=== PATIENT | female | born 1955 | race Caucasian/White ===

== ENCOUNTER → 2016-05-15 | Outpatient (CLI) | payer OTHER ==
[~2016-05-15] VITALS: Ht 167.6 cm; Wt 59.4 kg
[~2016-05-15] MED LIST: ACETAMINOPHEN-1 EAC1 PO; AMBIEN 5 MG TABL5 M1 PO; DICLOFENAC SOD50 M1 PO; HYDROCODONE-AP1 EAC6 PO; LOPRESSOR50 PO; NORTRIPTYLINE H50 MG PO; ZOCOR40 MG PO
--- NOTE | ~2016-05-15 | HPC ---
[facility] [place] [address] PAIN MANAGEMENT CONSULTATION Name: FADI STUART Room #: REG LEW Kaiser#: [id number] Admission: 05/15/16 Attend Phys: Hoang Dixon MD Discharge: Date of : 53 Report #: [id number] THIS REPORT FOR: //name// CC: Lara Dixon DATE OF SERVICE: 05/15/2016 Followup visit for chronic longstanding low back pain with radiculopathy. I am seeing the patient for the first time in 13 months. I saw her in April 2015 and after extensive evaluation and discussion, we decided that her pain may likely be discogenic related to L4-L5 causing encroachment upon the neural foramina. It was noted that she had disk desiccation also at L5-S1 without significant protrusion. She had had longstanding back pain that had been unresponsive to multiple different therapies passive and active including medication. She received a single epidural steroid injection on 04/11/2015 and this is the first time I have seen her back since. She said that after about 2-3 weeks, her pain nearly completely went away and she felt that this was completely related to the epidural given the duration of pain that she had prior to the treatment. She did well throughout the entire year up until April when the pain began to return. She scheduled an appointment about 3 weeks ago when the pain was quite severe. She was hopeful at that time that we would provide another epidural, but fortunately she has made some improvement since and the time taken for her to get into the clinic. Although her improvement is tenuous, she is better and she scores her pain low. She still has some aching pain across her low back with some radiation into the hips, but it does not extend far into her legs. PHYSICAL EXAMINATION: GENERAL: She is pleasant, alert and oriented. VITAL SIGNS: Blood pressure 134/74, heart rate 80. MUSCULOSKELETAL: She is able to easily get up from a sitting to standing position and ambulates without difficulty. There is good range of motion in the lumbar spine with tenderness over the lumbosacral region, pretty much in the midline right around the spinal process of L4. Straight leg raising discomfort is mildly noted once again into the hips, but no worse. She has had subjective numbness and tingling into the feet with normal sensation to light touch. IMPRESSION: Low back pain with degenerative disk disease at L4-L5 and L5-S1, neural foraminal encroachment is noted on MRI. Symptoms of numbness consistent with radiculopathy and axial back pain. RECOMMENDATIONS: At this time, she does not want nor does she need an epidural injection. I will see her back in the clinic and will preauthorize her for an injection if her pain that becomes worse over the course of the next 3-[address] [address] PAIN MANAGEMENT CONSULTATION Name: FADI STUART [place] Room #: REG LEW Kaiser#: [id number] Admission: 05/15/16 Attend Phys: Hoang Dixon MD Discharge: Date of : 53 Report #: [id number] Given her outstanding response and long duration, I would feel fine about giving her an intermittent epidural injection for pain flares rather than placing her on medication. <ELECTRONICALLY SIGNED> By: Hoang Dixon MD 05/16/16 1329 [id number] Hoang Dixon MD /nt
[2016-05-15 14:57] VITALS: BP 156/95
== END ==
LOC: PAIN 07:35
DX: M51.17 Intervertebral disc disorders with radiculopathy, lumbosacral region (principal); I10 Essential (primary) hypertension

== ENCOUNTER → 2016-05-29 | Outpatient (CLI) | payer OTHER ==
[~2016-05-29] VITALS: Ht 167.6 cm; Wt 59.0 kg
--- NOTE | ~2016-05-29 | HPC ---
[facility] [place] [address] PAIN MANAGEMENT CONSULTATION Name: FADI STUART Room #: REG RICHARDLeandro Kaiser#: [id number] Admission: 05/29/16 Attend Phys: Hoang Dixon MD Discharge: Date of : 53 Report #: [id number] THIS REPORT FOR: //name// CC: Lara Joey Dixon DATE OF SERVICE: 05/29/2016 Followup visit for low back pain with radiculopathy. The patient had greater than 60% relief following her initial epidural in April. Pain has returned, but overall she is better than she was prior to that injection performed on April 11. I saw her on 15 of May and we discussed the pros and cons of second injection. She is here today for that injection. She was traveling this weekend for 4 days down to her cabin in the [facility] [place]. She is hopeful that she will get some improvement, which will allow her to be much more active with her exercise, walking, swimming and yoga. MEDICATIONS: Unchanged. ALLERGIES: Unchanged. PHYSICAL EXAMINATION: Does reveal some tenderness across the lumbosacral segment. Blood pressure which was elevated at last is now normal. IMPRESSION: Low back pain with radiculopathy. PROCEDURE: Epidural steroid injection under fluoroscopic guidance. PROCEDURE: She was taken to fluoroscopic suite, placed prone, skin prepped with ChloraPrep. Skin anesthetized over L4-L5. A 20-gauge Tuohy epidural needle advanced in the epidural space with loss of resistance. No blood or CSF aspirated. A 1 mL of Omnipaque injected. Good spread of dye observed into the epidural space followed by 3 mL of 0.5% lidocaine, 80 mg of triamcinolone. She tolerated the procedure well and was observed for 35 minutes and discharged. Follow up as needed. <ELECTRONICALLY SIGNED> By: Hoang Dixon MD 06/21/16 1130 [id number] Hoang Dixon MD /nt
[2016-05-29 10:03] VITALS: BP 131/68
== END | disposition home or self-care (01) ==
LOC: PAIN 07:08
DX: M54.16 Radiculopathy, lumbar region (principal)